=== PATIENT | female | born 1990 | race Caucasian/White ===

== ENCOUNTER 2022-04-21 16:02 | Observation (INO) ==
[2022-04-21] MEDS ORDERED: PHENERGAN INJ 25 MG IM PRN (16:34)
[2022-04-21] MEDS ORDERED: ZOFRAN INJ 4 MG VIAL IVP PRN (16:34)
[2022-04-21] MEDS ORDERED: DILAUDID INJ IVP PRN ×3 (16:39→17:00)
[2022-04-21] MEDS ORDERED: TORADOL 30 MG VIAL IVP SCH (17:00)
[2022-04-21] MEDS ORDERED: NS 1,000 ML IV 1,000 ML IV SCH (17:00)
[2022-04-21 17:45] LABS: BASOPHILS # (AUTO) 0.2 X10^3/uL (0.0-0.1); BASOPHILS % (AUTO) 1.2 % (0.2-1.0); EOSINOPHILS % (AUTO) 0.1 % (0.9-2.9); ERYTHROCYTE SEDIMENTATION RATE 69 MM/HOUR (0-20); HEMATOCRIT 42.5 % (36.0-47.0); HEMOGLOBIN 13.7 g/dL (12.0-16.0); LYMPHOCYTES % (AUTO) 22.1 % (21.0-51.0); MEAN CORPUSCULAR HEMOGLOBIN 25.8 pg (27.0-34.0); MEAN CORPUSCULAR HGB CONC 32.2 g/dL (33.0-35.0); MEAN CORPUSCULAR VOLUME 80.2 fL (80.0-100.0); MEAN PLATELET VOLUME 7.3 fL (7.4-11.0); MONOCYTES # (AUTO) 0.5 x10^3/uL (0.3-0.8); NEUTROPHILS # (AUTO) 9.8 x10^3/uL (2.2-4.8); NEUTROPHILS % (AUTO) 72.6 % (42.0-75.0); RED BLOOD COUNT 5.29 X10^6/uL (3.5-5.4); RED CELL DISTRIBUTION WIDTH 16.7 % (11.6-16.5); WHITE BLOOD COUNT 13.4 X10^3/uL (3.6-10.0)
[2022-04-21 17:50] LABS: ALANINE AMINOTRANSFERASE 41 Units/L (12-78); ALBUMIN 2.9 g/dL (3.4-5.0); ALKALINE PHOSPHATASE 182 Units/L (46-116); ASPARTATE AMINO TRANSFERASE 22 Units/L (15-37); BLOOD UREA NITROGEN 13 mg/dL (7-18); CARBON DIOXIDE 25.5 mmol/L (21-32); CHLORIDE 103 mmol/L (98-107); COR CA(FOR HYPOALB) 9.9 mg/dL (8.5-10.1); COR NA(FOR HYPERGLY) 137 mmol/L (136-145); CREATININE 0.96 mg/dL (0.55-1.02); SODIUM 136 mmol/L (136-145); TOTAL PROTEIN 7.9 g/dL (6.4-8.2); eGFR NON BLACK RACES > 60 (>60)
[2022-04-21] MEDS: TORADOL 30 MG VIAL IVP SCH (18:45)
[2022-04-21] MEDS: NS 1,000 ML IV 1,000 ML IV SCH (18:46)
[2022-04-21] MEDS: BUSPAR PO SCH (20:58)
[2022-04-21] MEDS: DEPAKOTE D.R. TAB PO SCH (20:58)
[2022-04-21 21:21] LABS: BILIRUBIN,URINE NEGATIVE (NEGATIVE); BLOOD/HEMOGLOBIN,URINE NEGATIVE (NEGATIVE); GLUCOSE, URINE NEGATIVE (NEGATIVE); KETONES,URINE NEGATIVE (NEGATIVE); LEUKOCYTE ESTERASE ,URINE NEGATIVE (NEGATIVE); NITRITES,URINE NEGATIVE (NEGATIVE); PROTEIN,URINE 1+ (NEGATIVE); UROBILINOGEN,URINE NORMAL (NORMAL)
[2022-04-21 21:24] LABS: APPEARANCE,URINE CLEAR (CLEAR); COLOR,URINE YELLOW (YELLOW)
[2022-04-21] MEDS: PERCOCET TAB 5/325 MG PO PRN (21:24)
[2022-04-21 21:25] LABS: BACTERIA,URINE TRACE /HPF (NEGATIVE); SQUAMOUS EPITHELIAL CELL,UR MODERATE /HPF (NEGATIVE); YEAST,URINE RARE /HPF (NEGATIVE)
--- NOTE | 2022-04-21 21:54 | RAD ---
CHEST, 1 VIEWHISTORY: INTRACTABLE HAStudy: Single view of the chest.Comparison:NoneFindings:The cardiomediastinal silhouette is normal.No focal consolidations, pleural effusions or pneumothorax. Osseous structures demonstrate no acute abnormality.IMPRESSION:1. No acute cardiopulmonary process.Electronically signed by: LUPE NORIEGA (Apr 21, 2022 21:53:35)
[2022-04-21] MEDS: DILAUDID INJ IVP PRN (22:17)
[2022-04-22] MEDS: TORADOL 30 MG VIAL IVP SCH ×2 (00:10→08:22)
[2022-04-22] MEDS: DILAUDID INJ IVP PRN ×4 (01:33→15:26)
[2022-04-22 04:32] LABS: BASOPHILS # (AUTO) 0.1 X10^3/uL (0.0-0.1); BASOPHILS % (AUTO) 0.9 % (0.2-1.0); EOSINOPHILS % (AUTO) 0.2 % (0.9-2.9); HEMATOCRIT 40.5 % (36.0-47.0); HEMOGLOBIN 13.2 g/dL (12.0-16.0); LYMPHOCYTES # (AUTO) 3.8 X10^3/uL (1.3-2.9); LYMPHOCYTES % (AUTO) 31.6 % (21.0-51.0); MEAN CORPUSCULAR HEMOGLOBIN 26.1 pg (27.0-34.0); MEAN CORPUSCULAR HGB CONC 32.5 g/dL (33.0-35.0); MEAN CORPUSCULAR VOLUME 80.3 fL (80.0-100.0); MONOCYTES # (AUTO) 0.6 x10^3/uL (0.3-0.8); MONOCYTES % (AUTO) 5.4 % (0.0-13.0); NEUTROPHILS # (AUTO) 7.3 x10^3/uL (2.2-4.8); NEUTROPHILS % (AUTO) 61.9 % (42.0-75.0); RED BLOOD COUNT 5.04 X10^6/uL (3.5-5.4); RED CELL DISTRIBUTION WIDTH 16.6 % (11.6-16.5); WHITE BLOOD COUNT 11.9 X10^3/uL (3.6-10.0)
[2022-04-22 04:39] LABS: ALANINE AMINOTRANSFERASE 36 Units/L (12-78); ALBUMIN 2.8 g/dL (3.4-5.0); ALKALINE PHOSPHATASE 162 Units/L (46-116); ASPARTATE AMINO TRANSFERASE 17 Units/L (15-37); BLOOD UREA NITROGEN 16 mg/dL (7-18); CALCIUM 8.6 mg/dL (8.5-10.1); CARBON DIOXIDE 25.7 mmol/L (21-32); CHLORIDE 106 mmol/L (98-107); COR CA(FOR HYPOALB) 9.6 mg/dL (8.5-10.1); COR NA(FOR HYPERGLY) 139 mmol/L (136-145); CREATININE 0.86 mg/dL (0.55-1.02); SODIUM 138 mmol/L (136-145); TOTAL PROTEIN 7.5 g/dL (6.4-8.2); eGFR NON BLACK RACES > 60 (>60)
[2022-04-22] MEDS: PERCOCET TAB 5/325 MG PO PRN ×2 (07:13→20:25)
[2022-04-22] MEDS ORDERED: TOPROL XL PO ONE (08:05)
[2022-04-22] MEDS: TOPROL XL PO SCH (08:21)
[2022-04-22] MEDS: DEPAKOTE D.R. TAB PO SCH ×2 (08:22→20:25)
[2022-04-22] MEDS: LIPITOR TAB 40 MG PO SCH (08:22)
[2022-04-22] MEDS: PROzac PO SCH (08:22)
[2022-04-22] MEDS: BUSPAR PO SCH ×2 (08:22→20:25)
[2022-04-22] MEDS ORDERED: PROzac PO SCH (09:00)
[2022-04-22] MEDS: NS 1,000 ML IV 1,000 ML IV SCH (13:01)
[2022-04-22] MEDS ORDERED: PERCOCET TAB 5/325 MG PO PRN (13:03)
[2022-04-22] MEDS: LOVENOX INJ 40 MG SYR SC SCH (13:22)
[2022-04-22 14:14] VITALS: BMI 71.2
[2022-04-23] MEDS: PERCOCET TAB 5/325 MG PO PRN ×2 (01:25→07:55)
[2022-04-23] MEDS: DILAUDID INJ IVP PRN (01:56)
[2022-04-23 05:10] LABS: BASOPHILS # (AUTO) 0.1 X10^3/uL (0.0-0.1); BASOPHILS % (AUTO) 0.7 % (0.2-1.0); EOSINOPHILS % (AUTO) 0.1 % (0.9-2.9); HEMATOCRIT 39.3 % (36.0-47.0); HEMOGLOBIN 12.7 g/dL (12.0-16.0); LYMPHOCYTES # (AUTO) 3.1 X10^3/uL (1.3-2.9); LYMPHOCYTES % (AUTO) 24.1 % (21.0-51.0); MEAN CORPUSCULAR HEMOGLOBIN 25.9 pg (27.0-34.0); MEAN CORPUSCULAR HGB CONC 32.4 g/dL (33.0-35.0); MEAN CORPUSCULAR VOLUME 79.8 fL (80.0-100.0); MEAN PLATELET VOLUME 7.2 fL (7.4-11.0); MONOCYTES # (AUTO) 0.7 x10^3/uL (0.3-0.8); MONOCYTES % (AUTO) 5.3 % (0.0-13.0); NEUTROPHILS # (AUTO) 9.1 x10^3/uL (2.2-4.8); NEUTROPHILS % (AUTO) 69.8 % (42.0-75.0); RED BLOOD COUNT 4.92 X10^6/uL (3.5-5.4); RED CELL DISTRIBUTION WIDTH 16.3 % (11.6-16.5)
[2022-04-23 05:31] LABS: ALANINE AMINOTRANSFERASE 37 Units/L (12-78); ALBUMIN 2.5 g/dL (3.4-5.0); ALKALINE PHOSPHATASE 168 Units/L (46-116); ASPARTATE AMINO TRANSFERASE 21 Units/L (15-37); BLOOD UREA NITROGEN 13 mg/dL (7-18); CHLORIDE 108 mmol/L (98-107); COR CA(FOR HYPOALB) 9.2 mg/dL (8.5-10.1); COR NA(FOR HYPERGLY) 142 mmol/L (136-145); CREATININE 0.78 mg/dL (0.55-1.02); SODIUM 141 mmol/L (136-145); TOTAL PROTEIN 7.1 g/dL (6.4-8.2); eGFR NON BLACK RACES > 60 (>60)
[2022-04-23] MEDS ORDERED: TOPROL XL PO ONE (07:38)
[2022-04-23 08:00] VITALS: BP 128/76
[2022-04-23] MEDS: BUSPAR PO SCH (08:00)
[2022-04-23] MEDS: LIPITOR TAB 40 MG PO SCH (08:00)
[2022-04-23] MEDS: DEPAKOTE D.R. TAB PO SCH (08:00)
[2022-04-23] MEDS: TOPROL XL PO SCH (08:01)
[2022-04-23] MEDS: LOVENOX INJ 40 MG SYR SC SCH (08:01)
[2022-04-23] MEDS: PROzac PO SCH (08:01)
[2022-04-23] MEDS: NS 1,000 ML IV 1,000 ML IV SCH ×2 (08:01→09:01)
== END 2022-04-23 10:00 | disposition home or self-care (01) ==
LOC: MED/SURG
PROVIDERS: ADMIT Internal Medicine; ATTEND Internal Medicine
DX: R73.09 Other abnormal glucose; R51.9 Headache, unspecified; Z20.822 Contact with and (suspected) exposure to COVID-19; R79.82 Elevated C-reactive protein (CRP)

== ENCOUNTER 2023-06-07 13:57 | Inpatient (IN) ==
[2023-06-07] MEDS ORDERED: ZOFRAN INJ 4 MG VIAL IVP PRN (16:16)
[2023-06-07] MEDS ORDERED: DILAUDID INJ IVP ONE (16:16)
[2023-06-07 16:44] LABS: BASOPHILS % (AUTO) 0.3 % (0.2-1.0); EOSINOPHILS # (AUTO) 0.3 x10^3/uL (0.0-0.2); EOSINOPHILS % (AUTO) 3.7 % (0.9-2.9); LYMPHOCYTES # (AUTO) 2.9 X10^3/uL (1.3-2.9); LYMPHOCYTES % (AUTO) 36.2 % (21.0-51.0); MEAN CORPUSCULAR HEMOGLOBIN 25.8 pg (27.0-34.0); MEAN CORPUSCULAR HGB CONC 32.6 g/dL (33.0-35.0); MEAN CORPUSCULAR VOLUME 79.2 fL (80.0-100.0); MEAN PLATELET VOLUME 6.9 fL (7.4-11.0); MONOCYTES # (AUTO) 0.5 x10^3/uL (0.3-0.8); NEUTROPHILS # (AUTO) 4.3 x10^3/uL (2.2-4.8); NEUTROPHILS % (AUTO) 53.8 % (42.0-75.0); PLATELET COUNT 197 X10^3/uL (150.0-450.0); RED BLOOD COUNT 5.05 X10^6/uL (3.5-5.4); RED CELL DISTRIBUTION WIDTH 16.1 % (11.6-16.5); WHITE BLOOD COUNT 8.1 X10^3/uL (3.6-10.0)
[2023-06-07 16:45] LABS: BLOOD UREA NITROGEN 14 mg/dL (7-18); CALCIUM 8.9 mg/dL (8.5-10.1); CARBON DIOXIDE 27.4 mmol/L (21-32); CHLORIDE 104 mmol/L (98-107); COR NA(FOR HYPERGLY) 140 mmol/L (136-145); GLUCOSE 121 mg/dL (65-99); POTASSIUM 3.9 mmol/L (3.5-5.1); SODIUM 139 mmol/L (136-145); eGFR NON BLACK RACES > 60 (>60)
[2023-06-07 16:57] LABS: ALANINE AMINOTRANSFERASE 39 Units/L (12-78); ALBUMIN 2.9 g/dL (3.4-5.0); ALKALINE PHOSPHATASE 154 Units/L (46-116); ASPARTATE AMINO TRANSFERASE 26 Units/L (15-37); COR CA(FOR HYPOALB) 9.8 mg/dL (8.5-10.1); TOTAL PROTEIN 6.5 g/dL (6.4-8.2)
[2023-06-07] MEDS ORDERED: DILAUDID INJ ONE (17:00)
[2023-06-07] MEDS ORDERED: NS 1,000 ML IV 1,000 ML ONE (17:14)
[2023-06-07] MEDS: NS 1,000 ML IV 1,000 ML IV SCH (17:25)
[2023-06-07] MEDS: DILAUDID INJ IVP PRN (20:34)
[2023-06-07 20:49] LABS: BILIRUBIN,URINE NEGATIVE (NEGATIVE); BLOOD/HEMOGLOBIN,URINE NEGATIVE (NEGATIVE); GLUCOSE, URINE NEGATIVE (NEGATIVE); KETONES,URINE NEGATIVE (NEGATIVE); LEUKOCYTE ESTERASE ,URINE NEGATIVE (NEGATIVE); NITRITES,URINE NEGATIVE (NEGATIVE); PROTEIN,URINE NEGATIVE (NEGATIVE); UROBILINOGEN,URINE NORMAL (NORMAL)
[2023-06-07 20:54] LABS: APPEARANCE,URINE CLEAR (CLEAR); COLOR,URINE PALE YELLOW (YELLOW)
[2023-06-07] MEDS: VANCOMYCIN IV *PREMIX 2 G/400 ML BAG 2 G/400 ML PIGGYBACK IV SCH (21:15)
[2023-06-07 21:34] LABS: CREATININE 0.8 mg/dL (0.55-1.02)
[2023-06-07] MEDS ORDERED: VANCOMYCIN IV *PREMIX 1 G/200 ML BAG 1 G/200 ML PIGGYBACK IV SCH (22:00)
[2023-06-07] MEDS ORDERED: VANCOMYCIN IV SCH (22:30)
--- NOTE | 2023-06-07 22:47 | DR.H&P ---
H&P - History & Physical for Day of: H&P Date: 06/07/23 - Chief Complaint Chief Complaint: Intractable headache - History of Present Illness History of Present Illness: The patient is a 32yo WF who is having intractable headaches. Patient has history of increased intracranial pressures with multiple shunt placements. Patient has had 18 surgeries to correct drainage issues with most recent 2 having developed abscess or bacteremia. Shunt was removed by Dr Herman at [facility]. Patient was informed she is no longer a shunt candidate. Infectious Disease has her on Vancomycin 1gm IV Q 8hrs for ~3mths and Augmentin for 1 year. Work up in progress to determine why she is easy to acquire infections. Patient states she has had progressive and increasing intesity of headaches with no relief with Percocet and Ibuprofen. Patient is having increased blurred vision and nausea. - Past Medical History Past Medical History: Anxiety, Asthma, Depression, Migraines, Headaches, Liver Disease, SVT Additional Medical History: Increased intracranial hypertension, Bactermia - Past Surgical History Surgical History: Appendectomy, Cholecystectomy, Hysterectomy Additional Surgical History: Multiple shunt placements and shunt revisions (18 total) - Family History Family Medical History: Hypertension - Social History Does patient currently use any type of tobacco product: No Have you used tobacco products in the last 12 months: No Type of Tobacco Use: None Does any household member use tobacco: No Alcohol Use: None Drug Use: None Risks, benefits, and alternatives of opioids discussed: Yes Prescription drug monitoring program results: PDMP reviewed and no concerns identified - Review of Systems Constitutional: Malaise Eyes: Vision Change ENT: No Symptoms Reported Respiratory: No Symptoms Reported Cardiovascular: No Symptoms Reported Gastrointestinal: Nausea Genitourinary: No Symptoms Reported Musculoskeletal: No Symptoms Reported Skin: No Symptoms Reported Neurological: See HPI - Physical Exam Vital Signs: Vital Signs Temperature 97.8 F Temperature 98.6 F Pulse Rate [Bilateral Radial] 86 Pulse Rate [Bilateral Radial] 86 Respiratory Rate 22 Respiratory Rate 21 Respiratory Rate 20 Respiratory Rate 20 Respiratory Rate 20 Respiratory Rate 20 Blood Pressure [Right Arm] 122/67 Blood Pressure [Right Arm] 123/84 O2 Sat by Pulse Oximetry 99 O2 Sat by Pulse Oximetry 94 Oriented: Normal Eyes: Blurred Vision, Diplopia Ear: Normal Nose: Normal Throat: Normal Respiratory: Clear Throughout Cardiovascular: Normal : Normal Auscultation: Bowel Sounds: Normal Palpation: Normal Tenderness: Normal Skin: Normal Musculoskeletal: Normal Psychiatric: Normal Mood Description: Calm Affect: Quiet Speech Pattern: Clear - Assessment/Plan (1) Bacteremia Status: Acute Plan: Continue Vancomycin 1gm IV Q 8hrs, Augementin PO BID. Followed by ID in [place]. (2) Headache Status: Acute Plan: IV and PO Pain Medications (3) Increased intracranial pressure Status: Acute Plan: Monitor Neuro symptoms. (4) Morbid obesity Status: Acute - Allergies Allergies/Adverse Reactions: Allergies Allergy/AdvReac Type Severity Reaction Status Date / Time tree nut Allergy Verified 06/07/23 20:30 - Medications Home Medications: Home Medications Medication Instructions Recorded Confirmed atorvastatin 40 mg tablet 40 mg PO DAILY 04/21/22 06/07/23 buspirone 30 mg tablet 30 mg PO BID 04/21/22 06/07/23 fluoxetine 40 mg capsule 80 mg PO DAILY 04/21/22 06/07/23 oxybutynin chloride 15 mg 15 mg PO DAILY 04/21/22 06/07/23 tablet,extended release 24 hr oxycodone-acetaminophen 7.5 mg-325 1 tab PO BID PRN 04/21/22 06/07/23 mg tablet venlafaxine 150 mg 150 mg PO BID 04/21/22 06/07/23 capsule,extended release 24 hr acetazolamide 500 mg 1,500 mg PO BID 06/07/23 06/07/23 capsule,extended release amitriptyline 100 mg tablet 150 mg PO DAILY 06/07/23 06/07/23 amoxicillin 875 mg-potassium 1 tab PO BID 06/07/23 06/07/23 clavulanate 125 mg tablet calcium carbonate 600 mg-vitamin 2 tab PO BID 06/07/23 06/07/23 D3 20 mcg (800 unit) chewable tablet (Caltrate 600 plus D) metoprolol succinate 100 mg 100 mg PO QDAY 06/07/23 06/07/23 tablet,extended release 24 hr tizanidine 4 mg tablet 4 mg PO TID PRN 06/07/23 06/07/23 vancomycin 1,000 mg intravenous 1 g IV Q8H 06/07/23 06/07/23 injection
[2023-06-07] MEDS: AUGMENTIN 875 MG/125 MG TAB PO SCH (23:17)
[2023-06-07] MEDS: PERCOCET TAB 5/325 MG PO PRN (23:18)
--- NOTE | 2023-06-08 00:11 | RAD ---
HISTORYIntractable headacheSTUDYCHEST, 1 VIEWCOMPARISONNone.TECHNIQUEA single frontal view of the chest was obtained.FINDINGSThis study is limited secondary to asymmetric positioning of the patient. There is a dual port catheter with its tip overlying the expected location of the superior vena cava. The heart is normal in size. There is no focal infiltrate. There is no effusion. There is no pneumothorax. The osseous structures are intact.IMPRESSIONNo focal infiltrate or effusion.Dual port catheter in situ.Electronically signed by: Dee Echeverria (Jun 08, 2023 00:10:37)
[2023-06-08] MEDS: DILAUDID INJ IVP PRN ×4 (02:19→22:10)
[2023-06-08] MEDS: PERCOCET TAB 5/325 MG PO PRN ×3 (05:08→20:05)
[2023-06-08] MEDS: NS 1,000 ML IV 1,000 ML IV SCH (05:18)
[2023-06-08 06:28] LABS: BLOOD UREA NITROGEN 14 mg/dL (7-18); CALCIUM 9.1 mg/dL (8.5-10.1); CARBON DIOXIDE 24.5 mmol/L (21-32); CHLORIDE 103 mmol/L (98-107); COR NA(FOR HYPERGLY) 138 mmol/L (136-145); CREATININE 0.81 mg/dL (0.55-1.02); GLUCOSE 142 mg/dL (65-99); POTASSIUM 3.8 mmol/L (3.5-5.1); SODIUM 137 mmol/L (136-145); eGFR NON BLACK RACES > 60 (>60)
[2023-06-08 06:37] LABS: BASOPHILS # (AUTO) 0.1 X10^3/uL (0.0-0.1); EOSINOPHILS # (AUTO) 0.3 x10^3/uL (0.0-0.2); EOSINOPHILS % (AUTO) 2.7 % (0.9-2.9); HEMATOCRIT 41.2 % (36.0-47.0); HEMOGLOBIN 13.6 g/dL (12.0-16.0); LYMPHOCYTES # (AUTO) 2.9 X10^3/uL (1.3-2.9); LYMPHOCYTES % (AUTO) 29.6 % (21.0-51.0); MEAN CORPUSCULAR HEMOGLOBIN 26.1 pg (27.0-34.0); MEAN CORPUSCULAR VOLUME 79.2 fL (80.0-100.0); MEAN PLATELET VOLUME 7.3 fL (7.4-11.0); MONOCYTES # (AUTO) 0.6 x10^3/uL (0.3-0.8); MONOCYTES % (AUTO) 5.7 % (0.0-13.0); PLATELET COUNT 188 X10^3/uL (150.0-450.0); RED CELL DISTRIBUTION WIDTH 16.3 % (11.6-16.5); WHITE BLOOD COUNT 9.8 X10^3/uL (3.6-10.0)
[2023-06-08 06:54] LABS: ALANINE AMINOTRANSFERASE 33 Units/L (12-78); ALKALINE PHOSPHATASE 141 Units/L (46-116); ASPARTATE AMINO TRANSFERASE 34 Units/L (15-37); COR CA(FOR HYPOALB) 9.9 mg/dL (8.5-10.1); TOTAL PROTEIN 6.7 g/dL (6.4-8.2)
[2023-06-08] MEDS ORDERED: CONSULT PHARMACY - POTASSIUM & MAGNESIUM XX SCH (08:00)
[2023-06-08] MEDS: VANCOMYCIN IV *PREMIX 2 G/400 ML BAG 2 G/400 ML PIGGYBACK IV SCH ×2 (08:32→20:02)
[2023-06-08] MEDS: AUGMENTIN 875 MG/125 MG TAB PO SCH ×2 (08:32→20:04)
[2023-06-08] MEDS ORDERED: CITRACAL + VITAMIN D PO SCH (09:00)
[2023-06-08] MEDS ORDERED: BUSPIRONE 30 MG PO SCH (09:00)
[2023-06-08] MEDS ORDERED: ACETAZOLAMIDE 500 MG PO SCH (09:00)
[2023-06-08] MEDS ORDERED: OXYBUTYNIN CHLORIDE 15 MG PO SCH (09:00)
[2023-06-08] MEDS ORDERED: TOPROL XL PO ONE (09:18)
[2023-06-08] MEDS: BUSPAR PO SCH ×2 (09:20→20:08)
[2023-06-08] MEDS: ELAVIL PO SCH (09:20)
[2023-06-08] MEDS: PROzac PO SCH (09:21)
[2023-06-08] MEDS: EFFEXOR XR 150 MG CAP 24-HR PO SCH ×2 (09:21→20:04)
[2023-06-08] MEDS: LIPITOR TAB 40 MG PO SCH (09:22)
[2023-06-08] MEDS: TOPROL XL PO SCH (09:22)
[2023-06-08] MEDS: NS + KCL 20 MEQ/L 1,000 ML IV SCH ×2 (10:24→21:29)
[2023-06-08] MEDS: CITRACAL + VITAMIN D PO SCH ×2 (10:25→20:06)
[2023-06-08] MEDS: DIAMOX PO SCH (10:25)
[2023-06-08] MEDS: MAG-OX TAB PO SCH ×2 (10:26→21:28)
[2023-06-08] MEDS: OXYBUTYNIN CHLORIDE ER PO SCH (10:27)
[2023-06-08] MEDS: ZANAFLEX PO PRN (12:28)
[2023-06-08] MEDS ORDERED: TORADOL 15 MG VIAL IVP PRN (18:15)
--- NOTE | 2023-06-08 18:25 | PCM.PROG ---
Progress Note - Progress Note for Day of Date of Exam: 06/08/23 - Subjective Subjective: PT IS 32 WF, DIRECT ADMIT FROM DR CUNNINGHAM'S [place] OFFICE WITH INTRACTABLE PAIN. PT HAS BEEN ON PO PERCOCET 10MG AT HOME WITHOUT RELIEF OF PAIN. SHE IS CURRENTLY ON Q 6HRS WITH IV DILAUDID ALSO. PT REPORTS THIS MORNING HER PAIN IS STILL UNCONTROLLED. WE ADDED TORADOL IV X 3 DOSES TO PAIN MA NAGEMENT. PT IS ON VANCOMYCIN FOR INFECTION FOUND IN JUNIOR ART DIRECTOR. SHE IS UNDER THE CARE OF INFECTIOUS DISEASE AT [facility] IN [place]. WE WILL ADD CRP AND SED RATE TO LABS. PT HAD NO ANTERIOR, POSTERIOR CERVICAL OR OCCIPITAL LYMPADENOPATHY. PT HAS NO NUCHAL RIGIDITY ON EXAM. PT HAS BEEN AFEBRILE SINCE ADMISSION AND CXR WITHOUT ACUTE FINDINGS. - Past Medical Family Social History Past Med/Fam/Surg Hx: No changes since H&P Allergies: Allergies tree nut Allergy (Verified 06/07/23 20:30) - Review of Systems ROS: No change since H&P - Vital Signs and I&O's Vital Signs: Vital Signs Temperature 97.6 F Temperature 98.6 F Pulse Rate [Bilateral Radial] 89 Pulse Rate [Bilateral Radial] 95 Respiratory Rate 20 Respiratory Rate 20 Respiratory Rate 20 Respiratory Rate 20 Respiratory Rate 20 Respiratory Rate 20 Blood Pressure [Right Arm] 127/80 Blood Pressure [Right Arm] 151/69 O2 Sat by Pulse Oximetry 94 O2 Sat by Pulse Oximetry 95 Intake and Output: Intake & Output 06/06/23 06/07/23 06/08/23 06/09/23 11:59 11:59 11:59 11:59 Intake Total 2081 480 / 480 Balance 2081 480 / 480 - Physical Exam Oriented: Normal Eyes: Blurred Vision, Diplopia Ear: Normal Nose: Normal Throat: Normal Respiratory: Normal Cardiovascular: Normal : Normal Auscultation: Bowel Sounds: Normal Tenderness: Normal Skin: Normal Musculoskeletal: Normal Psychiatric: Normal Mood Description: Calm Affect: Quiet Speech Pattern: Clear, Appropriate - Laboratory and Diagnostics Result Diagrams: 06/08/23 05:38 06/08/23 05:38 Labs: 06/07/23 20:00 Urine,Clean Catch Urine Culture - Preliminary Laboratory WBC 9.8 X10^3/uL (3.6-10.0) 06/08/23 05:38 RBC 5.20 X10^6/uL (3.5-5.4) 06/08/23 05:38 Hgb 13.6 g/dL (12.0-16.0) 06/08/23 05:38 Hct 41.2 % (36.0-47.0) 06/08/23 05:38 MCV 79.2 fL (80.0-100.0) L 06/08/23 05:38 MCH 26.1 pg (27.0-34.0) L 06/08/23 05:38 MCHC 33.0 g/dL (33.0-35.0) 06/08/23 05:38 RDW 16.3 % (11.6-16.5) 06/08/23 05:38 Plt Count 188 X10^3/uL (150.0-450.0) 06/08/23 05:38 MPV 7.3 fL (7.4-11.0) L 06/08/23 05:38 Neut % (Auto) 61.0 % (42.0-75.0) 06/08/23 05:38 Lymph % (Auto) 29.6 % (21.0-51.0) 06/08/23 05:38 [place] % (Auto) 5.7 % (0.0-13.0) 06/08/23 05:38 Eos % (Auto) 2.7 % (0.9-2.9) 06/08/23 05:38 Baso % (Auto) 1.0 % (0.2-1.0) 06/08/23 05:38 Neut # (Auto) 6.0 x10^3/uL (2.2-4.8) H 06/08/23 05:38 Lymph # (Auto) 2.9 X10^3/uL (1.3-2.9) 06/08/23 05:38 [place] # (Auto) 0.6 x10^3/uL (0.3-0.8) 06/08/23 05:38 Eos # (Auto) 0.3 x10^3/uL (0.0-0.2) H 06/08/23 05:38 Baso # (Auto) 0.1 X10^3/uL (0.0-0.1) 06/08/23 05:38 Absolute Nucleated RBC 0.0 /100WBC 06/08/23 05:38 ESR 33 MM/HOUR (0-20) H 06/08/23 10:21 Sodium 137 mmol/L (136-145) 06/08/23 05:38 Corrected Sodium 138 mmol/L (136-145) 06/08/23 05:38 Potassium 3.8 mmol/L (3.5-5.1) 06/08/23 05:38 Chloride 103 mmol/L (98-107) 06/08/23 05:38 Carbon Dioxide 24.5 mmol/L (21-32) 06/08/23 05:38 BUN 14 mg/dL (7-18) 06/08/23 05:38 Creatinine 0.81 mg/dL (0.55-1.02) 06/08/23 05:38 Est GFR (MDRD) Af Amer > 60 (>60) 06/08/23 05:38 Est GFR (MDRD) Non-Af > 60 (>60) 06/08/23 05:38 Glucose 142 mg/dL (65-99) H 06/08/23 05:38 Calcium 9.1 mg/dL (8.5-10.1) 06/08/23 05:38 Corrected Calcium 9.9 mg/dL (8.5-10.1) 06/08/23 05:38 Magnesium 1.7 mg/dL (2.0-2.9) L 06/08/23 05:38 Total Bilirubin 0.30 mg/dL (0.2-1.0) 06/08/23 05:38 AST 34 Units/L (15-37) 06/08/23 05:38 ALT 33 Units/L (12-78) 06/08/23 05:38 Alkaline Phosphatase 141 Units/L (46-116) H 06/08/23 05:38 C-Reactive Protein 27.30 mg/L (0-3.0) H 06/08/23 10:21 Total Protein 6.7 g/dL (6.4-8.2) 06/08/23 05:38 Albumin 3.0 g/dL (3.4-5.0) L 06/08/23 05:38 Globulin 3.7 g/dL (2.5-4.5) 06/08/23 05:38 Albumin/Globulin Ratio 0.8 Ratio (1.1-2.1) L 06/08/23 05:38 Specimen Type Clean catch urine 06/07/23 20:00 Urine Color Pale yellow (YELLOW) 06/07/23 20:00 Urine Appearance Clear (CLEAR) 06/07/23 20:00 Urine pH 6.0 (5.0 - 8.0) 06/07/23 20:00 Ur Specific [place] 1.020 (1.000-1.030) 06/07/23 20:00 Urine Protein Negative (NEGATIVE) 06/07/23 20:00 Urine Glucose (UA) Negative (NEGATIVE) 06/07/23 20:00 Urine Ketones Negative (NEGATIVE) 06/07/23 20:00 Urine Blood Negative (NEGATIVE) 06/07/23 20:00 Urine Nitrite Negative (NEGATIVE) 06/07/23 20:00 Urine Bilirubin Negative (NEGATIVE) 06/07/23 20:00 Urine Urobilinogen Normal (NORMAL) 06/07/23 20:00 Ur Leukocyte Esterase Negative (NEGATIVE) 06/07/23 20:00 Vancomycin Trough 9.0 ug/mL (15-20) L 06/07/23 21:02 - Plan (1) Migraine aura, persistent, intractable Status: Acute Plan: CONTINUE IV HYDRATION, PAIN AND NAUSEA CONTROL. SUPPLEMENTAL O2 FOR ADKINS TREATMENT. CONTINUE HOME MEDICATION. BP CONTROL. CRP, SED RATE. CONTINUE IV VANCOMYCIN (2) Pseudotumor cerebri Status: Acute (3) Diabetes Status: Chronic (4) Bacteremia Status: Acute Plan: Continue Vancomycin 1gm IV Q 8hrs, Augementin PO BID. Followed by ID in [place].
[2023-06-08] MEDS: NEURONTIN CAP 100 MG PO SCH ×2 (20:06→21:28)
[2023-06-09] MEDS: PERCOCET TAB 5/325 MG PO PRN ×4 (02:08→20:34)
[2023-06-09] MEDS: NEURONTIN CAP 100 MG PO SCH ×2 (05:21→13:36)
[2023-06-09] MEDS: DILAUDID INJ IVP PRN ×4 (05:22→23:41)
[2023-06-09 06:56] LABS: BASOPHILS # (AUTO) 0.1 X10^3/uL (0.0-0.1); EOSINOPHILS # (AUTO) 0.3 x10^3/uL (0.0-0.2); HEMOGLOBIN 12.3 g/dL (12.0-16.0); LYMPHOCYTES # (AUTO) 2.3 X10^3/uL (1.3-2.9); LYMPHOCYTES % (AUTO) 30.7 % (21.0-51.0); MEAN CORPUSCULAR HEMOGLOBIN 25.9 pg (27.0-34.0); MEAN CORPUSCULAR HGB CONC 32.5 g/dL (33.0-35.0); MEAN CORPUSCULAR VOLUME 79.8 fL (80.0-100.0); MONOCYTES # (AUTO) 0.5 x10^3/uL (0.3-0.8); MONOCYTES % (AUTO) 7.3 % (0.0-13.0); NEUTROPHILS # (AUTO) 4.2 x10^3/uL (2.2-4.8); PLATELET COUNT 185 X10^3/uL (150.0-450.0); RED BLOOD COUNT 4.76 X10^6/uL (3.5-5.4); RED CELL DISTRIBUTION WIDTH 16.6 % (11.6-16.5); WHITE BLOOD COUNT 7.4 X10^3/uL (3.6-10.0)
[2023-06-09 07:16] LABS: ALANINE AMINOTRANSFERASE 36 Units/L (12-78); ALBUMIN 2.7 g/dL (3.4-5.0); ALKALINE PHOSPHATASE 136 Units/L (46-116); ASPARTATE AMINO TRANSFERASE 25 Units/L (15-37); BLOOD UREA NITROGEN 13 mg/dL (7-18); CALCIUM 9.1 mg/dL (8.5-10.1); CARBON DIOXIDE 27.6 mmol/L (21-32); CHLORIDE 102 mmol/L (98-107); COR CA(FOR HYPOALB) 10.1 mg/dL (8.5-10.1); COR NA(FOR HYPERGLY) 139 mmol/L (136-145); CREATININE 0.83 mg/dL (0.55-1.02); GLUCOSE 131 mg/dL (65-99); POTASSIUM 3.5 mmol/L (3.5-5.1); SODIUM 138 mmol/L (136-145); TOTAL PROTEIN 6.1 g/dL (6.4-8.2); eGFR NON BLACK RACES > 60 (>60)
[2023-06-09] MEDS ORDERED: TOPROL XL PO ONE (07:22)
[2023-06-09] MEDS ORDERED: CONSULT PHARMACY - POTASSIUM & MAGNESIUM XX SCH (08:00)
[2023-06-09] MEDS ORDERED: K-DUR TAB 20 MEQ PO SCH (08:00)
[2023-06-09] MEDS: AUGMENTIN 875 MG/125 MG TAB PO SCH ×2 (08:07→20:33)
[2023-06-09] MEDS: OXYBUTYNIN CHLORIDE ER PO SCH (08:07)
[2023-06-09] MEDS: PROzac PO SCH (08:08)
[2023-06-09] MEDS: EFFEXOR XR 150 MG CAP 24-HR PO SCH ×2 (08:08→20:34)
[2023-06-09] MEDS: TOPROL XL PO SCH (08:08)
[2023-06-09] MEDS: VANCOMYCIN IV *PREMIX 2 G/400 ML BAG 2 G/400 ML PIGGYBACK IV SCH ×2 (08:09→20:34)
[2023-06-09] MEDS: LIPITOR TAB 40 MG PO SCH (08:09)
[2023-06-09] MEDS: ELAVIL PO SCH (08:09)
[2023-06-09] MEDS: CITRACAL + VITAMIN D PO SCH ×2 (08:10→20:34)
[2023-06-09] MEDS: BUSPAR PO SCH ×2 (08:11→20:33)
[2023-06-09] MEDS ORDERED: PHARMACY COMMENT IV NR (08:30)
[2023-06-09] MEDS: MAG-OX TAB PO SCH ×2 (08:30→11:00)
[2023-06-09] MEDS ORDERED: PERCOCET TAB 5/325 MG PO PRN (09:27)
[2023-06-09] MEDS: KCL IV SCH (09:30)
[2023-06-09] MEDS: NS IV SCH (09:30)
[2023-06-09] MEDS: MAGNESIUM SULFATE IV SCH (09:30)
[2023-06-09] MEDS: DIAMOX PO SCH (10:00)
[2023-06-09 10:22] LABS: CREATININE 0.86 mg/dL (0.55-1.02); VANCOMYCIN,TROUGH 17.6 ug/mL (15-20)
--- NOTE | 2023-06-09 10:23 | CT ---
HISTORYHeadacheSTUDYCT sinuses without contrastTechnique: Axial noncontrast images with coronal and sagittal reformats. Dose reduction procedures were used with mA/kv adjusted for body size.COMPARISONNoneFINDINGSMild mucosal inflammatory changes are present in the right frontal sinus and left maxillary sinus. The remainder of the paranasal sinuses are clear. No air-fluid levels are identified. Nasal septum is midline. Ostiomeatal complexes are patent. Middle ear spaces and mastoid air cells are clear.IMPRESSIONMild mucosal inflammatory changes in the right frontal and left maxillary sinusesRemainder of the paranasal sinuses are clear.Clear mastoid air cells and middle ear spacesElectronically signed by: JUAN TIRADO (Jun 09, 2023 10:21:53)
--- NOTE | 2023-06-09 10:26 | CT ---
HISTORYheadachesSTUDYBRAIN W/O CONCOMPARISONNone.TECHNIQUEMultiple axial images of the head were performed from the skullbase to the vertex using standard departmental protocol. Sagittal and coronal reformatted images were performed. Dose reduction techniques including Automated Exposure Control (AEC) and adjustment of mA and kV were utilized.FINDINGSThe lateral ventricles and basilar cisterns are patent.No parenchymal mass or hematoma. Castellano-white differentiation appears acutely preserved.No extra-axial collection.The globes are intact.No air fluid levels in the paranasal sinuses. No paranasal sinus wall thickening or sclerosis. Mastoid air cells are clear.The calvarium is intact. There are doug holes in bilateral parietal bones image 29 and 28 of series 4.IMPRESSIONNo acute intracranial abnormality.Electronically signed by: Cody Garcia (Jun 09, 2023 10:24:57)
[2023-06-09] MEDS: CLARITIN PO SCH (17:00)
--- NOTE | 2023-06-09 17:50 | PCM.PROG ---
Progress Note - Progress Note for Day of Date of Exam: 06/09/23 - Subjective Subjective: PT IS 32 WF, DIRECT ADMIT FROM DR CUNNINGHAM'S [place] OFFICE WITH INTRACTABLE PAIN. PT HAS BEEN ON PO PERCOCET 10MG AT HOME WITHOUT RELIEF OF PAIN. SHE IS CURRENTLY ON Q 6HRS WITH IV DILAUDID ALSO. PT REPORTS THIS MORNING HER PAIN IS STILL UNCONTROLLED. WE ADDED TORADOL IV X 3 DOSES AND GABAPENTIN TO PAIN MANAGEMENT WITH PT REPORTS FAILURE TO GET RELIEF. WE DISCUSSED INCREASING PERCOCET TO Q 4 HRS AND INCREASING GABAPENTIN TO 300MG PO TID. PT HAS BEEN AFEBRILE AND DENIES ANY N/V/D. PLAN TO OBTAIN CT HEAD AND SINUS TODAY. PT IS ON VANCOMYCIN FOR INFECTION FOUND IN CHIEF SUPPLY CHAIN OFFICER. SHE IS UNDER THE CARE OF INFECTIOUS DISEASE AT [facility] IN [place]. WE WILL ADD CRP AND SED RATE TO LABS. PT HAD NO ANTERIOR, POSTERIOR CERVICAL OR OCCIPITAL LYMPADENOPATHY. PT HAS NO NUCHAL RIGIDITY ON EXAM. PT HAD CXR WITHOUT ACUTE FINDINGS. - Past Medical Family Social History Past Med/Fam/Surg Hx: No changes since H&P Allergies: Allergies tree nut Allergy (Verified 06/07/23 20:30) - Review of Systems ROS: No change since H&P - Vital Signs and I&O's Vital Signs: Vital Signs Temperature 98.3 F Temperature 97.9 F Pulse Rate [Bilateral Radial] 83 Pulse Rate [Bilateral Radial] 86 Respiratory Rate 20 Respiratory Rate 18 Respiratory Rate 20 Respiratory Rate 20 Respiratory Rate 18 Respiratory Rate 20 Respiratory Rate 20 Blood Pressure [Right Arm] 146/72 Blood Pressure [Right Arm] 131/78 O2 Sat by Pulse Oximetry 97 O2 Sat by Pulse Oximetry 96 Intake and Output: Intake & Output 06/07/23 06/08/23 06/09/23 06/10/23 11:59 11:59 11:59 11:59 Intake Total 2081 1160 / 1160 1040 / 1040 Balance 2081 1160 / 1160 1040 / 1040 - Physical Exam Oriented: Normal Eyes: Blurred Vision, Diplopia Ear: Normal Nose: Normal Throat: Normal Respiratory: Normal Cardiovascular: Normal : Normal Auscultation: Bowel Sounds: Normal Tenderness: Normal Skin: Normal Musculoskeletal: Normal Psychiatric: Normal Mood Description: Calm Affect: Quiet Speech Pattern: Clear, Appropriate - Laboratory and Diagnostics Result Diagrams: 06/09/23 05:30 06/09/23 09:45 Labs: 06/07/23 20:00 Urine,Clean Catch Urine Culture - Final Escherichia Coli Laboratory WBC 7.4 X10^3/uL (3.6-10.0) 06/09/23 05:30 RBC 4.76 X10^6/uL (3.5-5.4) 06/09/23 05:30 Hgb 12.3 g/dL (12.0-16.0) 06/09/23 05:30 Hct 38.0 % (36.0-47.0) 06/09/23 05:30 MCV 79.8 fL (80.0-100.0) L 06/09/23 05:30 MCH 25.9 pg (27.0-34.0) L 06/09/23 05:30 MCHC 32.5 g/dL (33.0-35.0) L 06/09/23 05:30 RDW 16.6 % (11.6-16.5) H 06/09/23 05:30 Plt Count 185 X10^3/uL (150.0-450.0) 06/09/23 05:30 MPV 7.0 fL (7.4-11.0) L 06/09/23 05:30 Neut % (Auto) 57.0 % (42.0-75.0) 06/09/23 05:30 Lymph % (Auto) 30.7 % (21.0-51.0) 06/09/23 05:30 [place] % (Auto) 7.3 % (0.0-13.0) 06/09/23 05:30 Eos % (Auto) 4.0 % (0.9-2.9) H 06/09/23 05:30 Baso % (Auto) 1.0 % (0.2-1.0) 06/09/23 05:30 Neut # (Auto) 4.2 x10^3/uL (2.2-4.8) 06/09/23 05:30 Lymph # (Auto) 2.3 X10^3/uL (1.3-2.9) 06/09/23 05:30 [place] # (Auto) 0.5 x10^3/uL (0.3-0.8) 06/09/23 05:30 Eos # (Auto) 0.3 x10^3/uL (0.0-0.2) H 06/09/23 05:30 Baso # (Auto) 0.1 X10^3/uL (0.0-0.1) 06/09/23 05:30 Absolute Nucleated RBC 0.0 /100WBC 06/09/23 05:30 ESR 33 MM/HOUR (0-20) H 06/08/23 10:21 Sodium 138 mmol/L (136-145) 06/09/23 05:30 Corrected Sodium 139 mmol/L (136-145) 06/09/23 05:30 Potassium 3.5 mmol/L (3.5-5.1) 06/09/23 05:30 Chloride 102 mmol/L (98-107) 06/09/23 05:30 Carbon Dioxide 27.6 mmol/L (21-32) 06/09/23 05:30 BUN 13 mg/dL (7-18) 06/09/23 05:30 Creatinine 0.86 mg/dL (0.55-1.02) 06/09/23 09:45 Est GFR (MDRD) Af Amer > 60 (>60) 06/09/23 05:30 Est GFR (MDRD) Non-Af > 60 (>60) 06/09/23 05:30 Glucose 131 mg/dL (65-99) H 06/09/23 05:30 Calcium 9.1 mg/dL (8.5-10.1) 06/09/23 05:30 Corrected Calcium 10.1 mg/dL (8.5-10.1) 06/09/23 05:30 Magnesium 1.8 mg/dL (2.0-2.9) L 06/09/23 05:30 Total Bilirubin 0.20 mg/dL (0.2-1.0) 06/09/23 05:30 AST 25 Units/L (15-37) 06/09/23 05:30 ALT 36 Units/L (12-78) 06/09/23 05:30 Alkaline Phosphatase 136 Units/L (46-116) H 06/09/23 05:30 C-Reactive Protein 27.30 mg/L (0-3.0) H 06/08/23 10:21 Total Protein 6.1 g/dL (6.4-8.2) L 06/09/23 05:30 Albumin 2.7 g/dL (3.4-5.0) L 06/09/23 05:30 Globulin 3.4 g/dL (2.5-4.5) 06/09/23 05:30 Albumin/Globulin Ratio 0.8 Ratio (1.1-2.1) L 06/09/23 05:30 Specimen Type Clean catch urine 06/07/23 20:00 Urine Color Pale yellow (YELLOW) 06/07/23 20:00 Urine Appearance Clear (CLEAR) 06/07/23 20:00 Urine pH 6.0 (5.0 - 8.0) 06/07/23 20:00 Ur Specific [place] 1.020 (1.000-1.030) 06/07/23 20:00 Urine Protein Negative (NEGATIVE) 06/07/23 20:00 Urine Glucose (UA) Negative (NEGATIVE) 06/07/23 20:00 Urine Ketones Negative (NEGATIVE) 06/07/23 20:00 Urine Blood Negative (NEGATIVE) 06/07/23 20:00 Urine Nitrite Negative (NEGATIVE) 06/07/23 20:00 Urine Bilirubin Negative (NEGATIVE) 06/07/23 20:00 Urine Urobilinogen Normal (NORMAL) 06/07/23 20:00 Ur Leukocyte Esterase Negative (NEGATIVE) 06/07/23 20:00 Vancomycin Trough 17.6 ug/mL (15-20) 06/09/23 09:45 - Plan (1) Migraine aura, persistent, intractable Status: Acute Plan: CONTINUE IV HYDRATION, PAIN AND NAUSEA CONTROL. SUPPLEMENTAL O2 FOR ADKINS TREATMENT. CONTINUE HOME MEDICATION. BP CONTROL. CRP, SED RATE. CONTINUE IV VANCOMYCIN (2) Pseudotumor cerebri Status: Acute (3) Diabetes Status: Chronic (4) Bacteremia Status: Acute Plan: Continue Vancomycin 1gm IV Q 8hrs, Augementin PO BID. Followed by ID in [place].
[2023-06-09] MEDS: NEURONTIN CAP 300 MG PO SCH ×2 (18:47→21:11)
[2023-06-09] MEDS: ZANAFLEX PO PRN (20:33)
[2023-06-09] MEDS: ASTELIN NASAL SPRAY ENOSTRIL SCH (20:36)
[2023-06-09] MEDS ORDERED: ASTELIN NASAL SPRAY ENOSTRIL ONE (21:02)
[2023-06-10] MEDS: PERCOCET TAB 5/325 MG PO PRN ×3 (02:27→13:30)
[2023-06-10] MEDS: NEURONTIN CAP 300 MG PO SCH ×3 (05:27→22:15)
[2023-06-10] MEDS: DILAUDID INJ IVP PRN ×4 (05:27→23:10)
[2023-06-10] MEDS: MAGNESIUM SULFATE IV SCH ×2 (05:27→13:40)
[2023-06-10] MEDS: NS IV SCH ×2 (05:27→13:40)
[2023-06-10] MEDS: KCL IV SCH ×2 (05:27→13:40)
[2023-06-10 06:02] LABS: BASOPHILS # (AUTO) 0.1 X10^3/uL (0.0-0.1); BASOPHILS % (AUTO) 1.1 % (0.2-1.0); EOSINOPHILS # (AUTO) 0.3 x10^3/uL (0.0-0.2); HEMATOCRIT 37.1 % (36.0-47.0); HEMOGLOBIN 12.2 g/dL (12.0-16.0); LYMPHOCYTES # (AUTO) 2.3 X10^3/uL (1.3-2.9); LYMPHOCYTES % (AUTO) 35.6 % (21.0-51.0); MEAN CORPUSCULAR HGB CONC 32.9 g/dL (33.0-35.0); MEAN CORPUSCULAR VOLUME 79.1 fL (80.0-100.0); MEAN PLATELET VOLUME 7.2 fL (7.4-11.0); MONOCYTES # (AUTO) 0.5 x10^3/uL (0.3-0.8); MONOCYTES % (AUTO) 7.4 % (0.0-13.0); NEUTROPHILS # (AUTO) 3.3 x10^3/uL (2.2-4.8); NEUTROPHILS % (AUTO) 51.9 % (42.0-75.0); PLATELET COUNT 196 X10^3/uL (150.0-450.0); RED BLOOD COUNT 4.69 X10^6/uL (3.5-5.4); RED CELL DISTRIBUTION WIDTH 16.4 % (11.6-16.5); WHITE BLOOD COUNT 6.5 X10^3/uL (3.6-10.0)
[2023-06-10 06:32] LABS: ALANINE AMINOTRANSFERASE 43 Units/L (12-78); ALBUMIN 2.8 g/dL (3.4-5.0); ALKALINE PHOSPHATASE 129 Units/L (46-116); ASPARTATE AMINO TRANSFERASE 28 Units/L (15-37); BLOOD UREA NITROGEN 15 mg/dL (7-18); CALCIUM 8.2 mg/dL (8.5-10.1); CARBON DIOXIDE 29.1 mmol/L (21-32); CHLORIDE 104 mmol/L (98-107); COR CA(FOR HYPOALB) 9.2 mg/dL (8.5-10.1); COR NA(FOR HYPERGLY) 139 mmol/L (136-145); CREATININE 1.18 mg/dL (0.55-1.02); GLUCOSE 119 mg/dL (65-99); POTASSIUM 3.7 mmol/L (3.5-5.1); SODIUM 139 mmol/L (136-145); TOTAL PROTEIN 6.2 g/dL (6.4-8.2); eGFR NON BLACK RACES 57 (>60)
[2023-06-10] MEDS ORDERED: CONSULT PHARMACY - POTASSIUM & MAGNESIUM XX SCH (07:00)
[2023-06-10] MEDS ORDERED: TOPROL XL PO ONE (09:05)
[2023-06-10] MEDS: ELAVIL PO SCH (09:09)
[2023-06-10] MEDS: VANCOMYCIN IV *PREMIX 2 G/400 ML BAG 2 G/400 ML PIGGYBACK IV SCH ×2 (09:09→20:44)
[2023-06-10] MEDS ORDERED: DILAUDID INJ IVP ONE (09:16)
[2023-06-10] MEDS: MAG-OX TAB PO SCH ×2 (09:41→09:59)
[2023-06-10] MEDS: ASTELIN NASAL SPRAY ENOSTRIL SCH ×2 (09:41→20:42)
[2023-06-10] MEDS: CITRACAL + VITAMIN D PO SCH ×2 (09:42→20:44)
[2023-06-10] MEDS: CLARITIN PO SCH (09:42)
[2023-06-10] MEDS: BUSPAR PO SCH ×2 (09:42→20:43)
[2023-06-10] MEDS: DIAMOX PO SCH (09:42)
[2023-06-10] MEDS: EFFEXOR XR 150 MG CAP 24-HR PO SCH ×2 (09:42→20:43)
[2023-06-10] MEDS: AUGMENTIN 875 MG/125 MG TAB PO SCH ×2 (09:42→20:42)
[2023-06-10] MEDS: LIPITOR TAB 40 MG PO SCH (09:43)
[2023-06-10] MEDS: K-DUR TAB 20 MEQ PO SCH (09:43)
[2023-06-10] MEDS: TOPROL XL PO SCH (09:43)
[2023-06-10] MEDS: PROzac PO SCH (09:43)
[2023-06-10] MEDS: OXYBUTYNIN CHLORIDE ER PO SCH (09:43)
[2023-06-10] MEDS: TORADOL 15 MG VIAL IVP SCH ×2 (12:35→20:39)
--- NOTE | 2023-06-10 13:22 | PCM.PROG ---
Progress Note - Subjective Subjective: PT IS 32 WF, DIRECT ADMIT FROM DR CUNNINGHAM'S [place] OFFICE WITH INTRACTABLE PAIN. PT HAS BEEN ON PO PERCOCET 10MG AT HOME WITHOUT RELIEF OF PAIN. SHE IS CURRENTLY ON Q 6HRS WITH IV DILAUDID ALSO. PT REPORTS THIS MORNING HER PAIN IS STILL UNCONTROLLED WITH ADDING TORADOL IV X 3 DOSES AND GABAPENTIN TO PAIN MANAGEMENT, BUT MILD IMPROVEMENT SINCE WE INCREASED PERCOCET TO Q 4 HRS INCREASED GABAPENTIN TO 300MG PO TID. PT HAS BEEN AFEBRILE AND DENIES ANY N/V/D. CT HEAD AND SINUS REVEALED CHRONIC SINUS DISEASE. SHE IS ON AUGMENTIN ALREADY AND WE ADDED CLARITIN AND ASTEPRO NASAL SPRAY. PT IS ON VANCOMYCIN FOR INFECTION FOUND IN PACKAGER HEAD. SHE IS UNDER THE CARE OF INFECTIOUS DISEASE AT [facility] IN [place]. PT HAD NO ANTERIOR, POSTERIOR CERVICAL OR OCCIPITAL LYMPADENOPATHY. PT HAS NO NUCHAL RIGIDITY ON EXAM. PT HAD CXR WITHOUT ACUTE FINDINGS. - Past Medical Family Social History Past Med/Fam/Surg Hx: No changes since H&P Allergies: Allergies tree nut Allergy (Verified 06/07/23 20:30) - Review of Systems ROS: No change since H&P - Vital Signs and I&O's Vital Signs: Vital Signs Temperature 97.6 F Temperature 98.9 F Pulse Rate [Bilateral Radial] 86 Pulse Rate [Bilateral Radial] 78 Respiratory Rate 20 Respiratory Rate 20 Respiratory Rate 18 Respiratory Rate 20 Respiratory Rate 20 Respiratory Rate 20 Respiratory Rate 20 Respiratory Rate 20 Respiratory Rate 18 Respiratory Rate 18 Respiratory Rate 18 Blood Pressure [Right Arm] 123/65 Blood Pressure [Right Arm] 124/74 O2 Sat by Pulse Oximetry 95 O2 Sat by Pulse Oximetry 100 Intake and Output: Intake & Output 06/08/23 06/09/23 06/10/23 06/11/23 11:59 11:59 11:59 11:59 Intake Total 2081 1160 / 1160 3094 / 3094 Balance 2081 1160 / 1160 3094 / 3094 - Physical Exam Oriented: Normal Eyes: Blurred Vision, Diplopia Ear: Normal Nose: Other (FRONTAL SINUS TENDERNESS) Throat: Normal Respiratory: Normal Cardiovascular: Normal : Normal Auscultation: Bowel Sounds: Normal Tenderness: Normal Skin: Normal Musculoskeletal: Normal Psychiatric: Normal Mood Description: Calm Affect: Quiet Speech Pattern: Clear, Appropriate - Laboratory and Diagnostics Result Diagrams: 06/10/23 05:16 06/10/23 05:16 Labs: 06/07/23 20:00 Urine,Clean Catch Urine Culture - Final Escherichia Coli Laboratory WBC 6.5 X10^3/uL (3.6-10.0) 06/10/23 05:16 RBC 4.69 X10^6/uL (3.5-5.4) 06/10/23 05:16 Hgb 12.2 g/dL (12.0-16.0) 06/10/23 05:16 Hct 37.1 % (36.0-47.0) 06/10/23 05:16 MCV 79.1 fL (80.0-100.0) L 06/10/23 05:16 MCH 26.0 pg (27.0-34.0) L 06/10/23 05:16 MCHC 32.9 g/dL (33.0-35.0) L 06/10/23 05:16 RDW 16.4 % (11.6-16.5) 06/10/23 05:16 Plt Count 196 X10^3/uL (150.0-450.0) 06/10/23 05:16 MPV 7.2 fL (7.4-11.0) L 06/10/23 05:16 Neut % (Auto) 51.9 % (42.0-75.0) 06/10/23 05:16 Lymph % (Auto) 35.6 % (21.0-51.0) 06/10/23 05:16 [place] % (Auto) 7.4 % (0.0-13.0) 06/10/23 05:16 Eos % (Auto) 4.0 % (0.9-2.9) H 06/10/23 05:16 Baso % (Auto) 1.1 % (0.2-1.0) H 06/10/23 05:16 Neut # (Auto) 3.3 x10^3/uL (2.2-4.8) 06/10/23 05:16 Lymph # (Auto) 2.3 X10^3/uL (1.3-2.9) 06/10/23 05:16 [place] # (Auto) 0.5 x10^3/uL (0.3-0.8) 06/10/23 05:16 Eos # (Auto) 0.3 x10^3/uL (0.0-0.2) H 06/10/23 05:16 Baso # (Auto) 0.1 X10^3/uL (0.0-0.1) 06/10/23 05:16 Absolute Nucleated RBC 0.1 /100WBC 06/10/23 05:16 ESR 33 MM/HOUR (0-20) H 06/08/23 10:21 Sodium 139 mmol/L (136-145) 06/10/23 05:16 Corrected Sodium 139 mmol/L (136-145) 06/10/23 05:16 Potassium 3.7 mmol/L (3.5-5.1) 06/10/23 05:16 Chloride 104 mmol/L (98-107) 06/10/23 05:16 Carbon Dioxide 29.1 mmol/L (21-32) 06/10/23 05:16 BUN 15 mg/dL (7-18) 06/10/23 05:16 Creatinine 1.18 mg/dL (0.55-1.02) H 06/10/23 05:16 Est GFR (MDRD) Af Amer > 60 (>60) 06/10/23 05:16 Est GFR (MDRD) Non-Af 57 (>60) L 06/10/23 05:16 Glucose 119 mg/dL (65-99) H 06/10/23 05:16 Calcium 8.2 mg/dL (8.5-10.1) L 06/10/23 05:16 Corrected Calcium 9.2 mg/dL (8.5-10.1) 06/10/23 05:16 Magnesium 1.9 mg/dL (2.0-2.9) L 06/10/23 05:16 Total Bilirubin 0.20 mg/dL (0.2-1.0) 06/10/23 05:16 AST 28 Units/L (15-37) 06/10/23 05:16 ALT 43 Units/L (12-78) 06/10/23 05:16 Alkaline Phosphatase 129 Units/L (46-116) H 06/10/23 05:16 C-Reactive Protein 27.30 mg/L (0-3.0) H 06/08/23 10:21 Total Protein 6.2 g/dL (6.4-8.2) L 06/10/23 05:16 Albumin 2.8 g/dL (3.4-5.0) L 06/10/23 05:16 Globulin 3.4 g/dL (2.5-4.5) 06/10/23 05:16 Albumin/Globulin Ratio 0.8 Ratio (1.1-2.1) L 06/10/23 05:16 Specimen Type Clean catch urine 06/07/23 20:00 Urine Color Pale yellow (YELLOW) 06/07/23 20:00 Urine Appearance Clear (CLEAR) 06/07/23 20:00 Urine pH 6.0 (5.0 - 8.0) 06/07/23 20:00 Ur Specific [place] 1.020 (1.000-1.030) 06/07/23 20:00 Urine Protein Negative (NEGATIVE) 06/07/23 20:00 Urine Glucose (UA) Negative (NEGATIVE) 06/07/23 20:00 Urine Ketones Negative (NEGATIVE) 06/07/23 20:00 Urine Blood Negative (NEGATIVE) 06/07/23 20:00 Urine Nitrite Negative (NEGATIVE) 06/07/23 20:00 Urine Bilirubin Negative (NEGATIVE) 06/07/23 20:00 Urine Urobilinogen Normal (NORMAL) 06/07/23 20:00 Ur Leukocyte Esterase Negative (NEGATIVE) 06/07/23 20:00 Vancomycin Trough 17.6 ug/mL (15-20) 06/09/23 09:45 - Plan (1) Migraine aura, persistent, intractable Status: Acute Plan: CONTINUE IV HYDRATION, PAIN AND NAUSEA CONTROL. SUPPLEMENTAL O2 FOR ADKINS TREATMENT. CONTINUE HOME MEDICATION. BP CONTROL. CRP, SED RATE. CONTINUE IV VANCOMYCIN (2) Pseudotumor cerebri Status: Acute (3) Diabetes Status: Chronic (4) Bacteremia Status: Acute Plan: Continue Vancomycin 1gm IV Q 8hrs, Augementin PO BID. Followed by ID in [place].
[2023-06-10] MEDS: ZANAFLEX PO PRN (23:10)
[2023-06-11] MEDS: PERCOCET TAB 5/325 MG PO PRN ×2 (01:15→07:38)
[2023-06-11 04:55] VITALS: BP 106/73
[2023-06-11] MEDS: DILAUDID INJ IVP PRN (05:05)
[2023-06-11] MEDS: NEURONTIN CAP 300 MG PO SCH (05:13)
[2023-06-11 06:03] LABS: BASOPHILS # (AUTO) 0.1 X10^3/uL (0.0-0.1); BASOPHILS % (AUTO) 1.1 % (0.2-1.0); EOSINOPHILS # (AUTO) 0.3 x10^3/uL (0.0-0.2); EOSINOPHILS % (AUTO) 4.2 % (0.9-2.9); HEMATOCRIT 37.1 % (36.0-47.0); HEMOGLOBIN 11.9 g/dL (12.0-16.0); LYMPHOCYTES # (AUTO) 2.7 X10^3/uL (1.3-2.9); LYMPHOCYTES % (AUTO) 39.4 % (21.0-51.0); MEAN CORPUSCULAR HEMOGLOBIN 25.6 pg (27.0-34.0); MONOCYTES # (AUTO) 0.6 x10^3/uL (0.3-0.8); MONOCYTES % (AUTO) 8.3 % (0.0-13.0); NEUTROPHILS # (AUTO) 3.2 x10^3/uL (2.2-4.8); PLATELET COUNT 185 X10^3/uL (150.0-450.0); RED BLOOD COUNT 4.64 X10^6/uL (3.5-5.4); RED CELL DISTRIBUTION WIDTH 16.4 % (11.6-16.5); WHITE BLOOD COUNT 6.7 X10^3/uL (3.6-10.0)
[2023-06-11 06:31] LABS: ALANINE AMINOTRANSFERASE 38 Units/L (12-78); ALBUMIN 2.7 g/dL (3.4-5.0); ALKALINE PHOSPHATASE 137 Units/L (46-116); ASPARTATE AMINO TRANSFERASE 22 Units/L (15-37); BLOOD UREA NITROGEN 20 mg/dL (7-18); CALCIUM 8.4 mg/dL (8.5-10.1); CARBON DIOXIDE 31.4 mmol/L (21-32); CHLORIDE 106 mmol/L (98-107); COR CA(FOR HYPOALB) 9.4 mg/dL (8.5-10.1); COR NA(FOR HYPERGLY) 141 mmol/L (136-145); CREATININE 0.95 mg/dL (0.55-1.02); GLUCOSE 118 mg/dL (65-99); MAGNESIUM 2.1 mg/dL (2.0-2.9); POTASSIUM 3.9 mmol/L (3.5-5.1); SODIUM 141 mmol/L (136-145); eGFR NON BLACK RACES > 60 (>60)
[2023-06-11] MEDS ORDERED: CONSULT PHARMACY - POTASSIUM & MAGNESIUM XX SCH (07:00)
[2023-06-11] MEDS: VANCOMYCIN IV *PREMIX 2 G/400 ML BAG 2 G/400 ML PIGGYBACK IV SCH (09:30)
[2023-06-11] MEDS: ELAVIL PO SCH (09:30)
[2023-06-11] MEDS: PROzac PO SCH (09:31)
[2023-06-11] MEDS: OXYBUTYNIN CHLORIDE ER PO SCH (09:31)
[2023-06-11] MEDS: EFFEXOR XR 150 MG CAP 24-HR PO SCH (09:32)
[2023-06-11] MEDS: CLARITIN PO SCH (09:32)
[2023-06-11] MEDS: K-DUR TAB 20 MEQ PO SCH (09:32)
[2023-06-11] MEDS: DIAMOX PO SCH (09:32)
[2023-06-11] MEDS: LIPITOR TAB 40 MG PO SCH (09:32)
[2023-06-11] MEDS: BUSPAR PO SCH (09:33)
[2023-06-11] MEDS: AUGMENTIN 875 MG/125 MG TAB PO SCH (09:33)
[2023-06-11] MEDS: CITRACAL + VITAMIN D PO SCH (09:34)
[2023-06-11] MEDS: ASTELIN NASAL SPRAY ENOSTRIL SCH (09:34)
[2023-06-11] MEDS: TOPROL XL PO SCH (09:44)
[2023-06-11] MEDS ORDERED: TOPROL XL PO ONE (09:48)
[2023-06-11] MEDS ORDERED: DILAUDID INJ IVP ONE (10:08)
[2023-06-11 10:22] VITALS: RESP 20
[2023-06-11 10:26] VITALS: PULSE 74; TEMP 97.6; O2SAT 99
== END 2023-06-11 12:20 | disposition home or self-care (01) | DRG 103 ==
LOC: MED/SURG
PROVIDERS: ADMIT Internal Medicine; ATTEND Internal Medicine